=== PATIENT | male | born 1955 | race Caucasian/White ===

== ENCOUNTER 2023-08-06 12:45 | Outpatient (CLI) | payer MEDICARE | END 2023-08-06 12:46 | disposition home or self-care (01) | LOC: CSHWCC 12:45 | PROVIDERS: ATTEND Nurse Practitioner Family | DX: I87.313 Chronic venous hypertension (idiopathic) with ulcer of bilateral lower extremity (principal); E11.622 Type 2 diabetes mellitus with other skin ulcer; L97.222 Non-pressure chronic ulcer of left calf with fat layer exposed; L97.212 Non-pressure chronic ulcer of right calf with fat layer exposed; C22.0 Liver cell carcinoma; K74.60 Unspecified cirrhosis of liver | CPT/HCPCS: 11042; 97597 ==

== ENCOUNTER 2023-11-26 07:27 | Day surgery (SDC) | payer MEDICARE ==
[2023-11-26] MEDS ORDERED: Albumin 25% 100 ML ONE (07:38)
[2023-11-26 08:15] VITALS: BP 110/68; TEMP 97.8
[2023-11-26] MEDS ORDERED: Lidocaine 1% PF 5 ML VIAL ONE (08:17)
[2023-11-26] MEDS ORDERED: Sodium Bicarbonate 2.5 MEQ/5 ML SDV ONE (08:17)
[2023-11-26 11:50] LABS: BF Color Yellow; Body Fluid Source Ascites Body Fluid; Clarity Hazy (Clear); Tube # EDTA
[2023-11-26 11:59] LABS: BF Segmented Neutrophils 8 %; Cell Count Non Hematic 62 %; Lymphocytes 30 %
== END 2023-11-26 10:30 | disposition home or self-care (01) ==
LOC: CSHULT 07:27
PROVIDERS: ATTEND Physician Assistant Medical
PROC: 0W9G30Z Drainage of Peritoneal Cavity with Drainage Device, Percutaneous Approach (ICD-10-PCS; principal; 2023-11-26)
DX: K74.60 Unspecified cirrhosis of liver (principal); R18.8 Other ascites; R85.69 Abnormal cytological findings in specimens from other digestive organs and abdominal cavity; Z86.010 Personal history of colon polyps; K21.9 Gastro-esophageal reflux disease without esophagitis; E87.1 Hypo-osmolality and hyponatremia; Z79.82 Long term (current) use of aspirin; Z79.899 Other long term (current) drug therapy; Z88.0 Allergy status to penicillin
CPT/HCPCS: 49083; 82042; 84155; 87070; 87205; 89051; P9047; 88112

== ENCOUNTER 2023-12-05 13:28 | Outpatient (CLI) | payer MEDICARE | END 2023-12-05 13:29 | disposition home or self-care (01) | LOC: CSHWCC 13:28 | PROVIDERS: ATTEND Nurse Practitioner Family | DX: I87.313 Chronic venous hypertension (idiopathic) with ulcer of bilateral lower extremity (principal); E11.622 Type 2 diabetes mellitus with other skin ulcer; L97.222 Non-pressure chronic ulcer of left calf with fat layer exposed; L97.212 Non-pressure chronic ulcer of right calf with fat layer exposed; K74.60 Unspecified cirrhosis of liver; C22.0 Liver cell carcinoma | CPT/HCPCS: 11042; G0463; 99213 ==

== ENCOUNTER 2024-01-02 14:28 | Outpatient (CLI) | payer MEDICARE | END 2024-01-02 14:29 | disposition home or self-care (01) | LOC: CSHWCC 14:28 | PROVIDERS: ATTEND Nurse Practitioner Family | DX: I87.313 Chronic venous hypertension (idiopathic) with ulcer of bilateral lower extremity (principal); E11.622 Type 2 diabetes mellitus with other skin ulcer; L97.222 Non-pressure chronic ulcer of left calf with fat layer exposed; K74.60 Unspecified cirrhosis of liver; C22.0 Liver cell carcinoma | CPT/HCPCS: 11042 ==